=== PATIENT | female | born 1970 ===

== ENCOUNTER 2019-08-30 15:15 | Emergency (ER) | payer SELFPAY ==
[2019-08-30 15:28] VITALS: BP 102/42
--- NOTE | 2019-08-30 15:50 | UC ---
Laceration HPI - HPI Summary HPI Summary: 49-year old female presents for laceration to the tip of her right ring finger. States she was attempting to open a metal can and cut her finger on the edge of the can around 3:00 pm yesterday. States she cleaned and bandaged the wound. Continues to ooze blood. Tetanus status is unknown. Denies fever, chills, erythema, edema, or purulent discharge. - History Of Current Complaint Chief Complaint: UCLaceration Stated Complaint: FINGER LAC Time Seen by Provider: 08/30/19 15:33 Hx Obtained From: Patient Hx Last Menstrual Period: last month Pain Intensity: 1 - Allergies/Home Medications Allergies/Adverse Reactions: Allergies Allergy/AdvReac Type Severity Reaction Status Date / Time erythromycin base Allergy Rash Verified 08/30/19 15:28 Home Medications: Home Medications NK [No Home Medications Reported] 08/30/19 [History Confirmed 08/30/19] PMH/Surg Hx/FS Hx/Imm Hx Previously Healthy: Yes - Denies significant PMH - Surgical History Surgical History: Yes Surgery Procedure, Year, and Place: wisdom teeth. achilles rupture repair - Family History Known Family History: Positive: Non-Contributory - Social History Occupation: Employed Full-time Lives: With Family Alcohol Use: Occasionally Substance Use Type: None Smoking Status (MU): Never Smoked Tobacco - Immunization History Most Recent Influenza Vaccination: never Most Recent Tetanus Shot: UTD Review of Systems All Other Systems Reviewed And Are Negative: Yes Constitutional: Negative: Fever, Chills Skin: Positive: Other - See HPI Respiratory: Positive: Negative Cardiovascular: Positive: Negative Gastrointestinal: Positive: Negative Genitourinary: Positive: Negative Musculoskeletal: Positive: Negative Neurological: Positive: Negative Is Patient Immunocompromised?: No Physical Exam - Summary Physical Exam Summary: GENERAL APPEARANCE: Well developed, well nourished, alert and cooperative, and appears to be in no acute distress. CARDIAC: Normal S1 and S2. No S3, S4 or murmurs. Rhythm is regular. There is no peripheral edema, cyanosis or pallor. Extremities are warm and well perfused. Capillary refill is less than 2 seconds. Peripheral pulses intact. LUNGS: Clear to auscultation without rales, rhonchi, wheezing or diminished breath sounds. ABDOMEN: Positive bowel sounds. Soft, nondistended, nontender. No guarding or rebound. No masses or hepatosplenomegally. MUSKULOSKELETAL: ROM intact to all extremities. No joint erythema or tenderness. Normal muscular development. Normal gait. EXTREMITIES: Superficial C-shaped flap laceration to the tip of the right ring finger. The flap is pale and non-viable. No active bleeding. No erythema, edema , or drainage. SKIN: Skin normal color, texture and turgor. Triage Information Reviewed: Yes Vital Signs: Initial Vital Signs Temp 99.7 F 08/30/19 15:23 Pulse 72 08/30/19 15:23 Resp 18 08/30/19 15:23 BP 102/42 08/30/19 15:23 Pulse Ox 98 08/30/19 15:23 Vital Signs Reviewed: Yes Laceration Course/Dx - Course/Dx Course Of Treatment: 49-year old female presents for laceration to the tip of her right ring finger. States she was attempting to open a metal can and cut her finger on the edge of the can around 3:00 pm yesterday. States she cleaned and bandaged the wound. Continues to ooze blood. Tetanus status is unknown. Denies fever, chills, erythema, edema, or purulent discharge. Afebrile. Vital signs stable. Patient had a superficial C-shaped flap laceration to the tip of the right ring finger. The flap is pale and non-viable. No active bleeding. No erythema, edema, or drainage. Remainder of exam was unremarkable. I discussed with the patient that due to the length of time since the injury and that the avulsed skin was non- viable that the wound could not be repaired and would need to heal by secondary intention. Offered to excise the non-viable tissue however patient declined to have this procedure. Her tetanus was updated and a dressing was applied by the RN. She is to follow up with her primary care provider as needed. Anticipatory guidance and warning symptoms were reviewed with the patient. Verbalizes understanding and agrees with POC. - Differential Dx - Laceration/Wound Differental Diagnoses: Laceration, Tendon Laceration - Diagnosis Provider Diagnosis: Avulsion of skin of finger Discharge ED - Sign-Out/Discharge Documenting (check all that apply): Patient Departure All imaging exams completed and their final reports reviewed: No Studies - Discharge Plan Condition: Stable Disposition: HOME Patient Education Materials: Laceration Without Closure (ED) Referrals: Bala Sousa MD [Primary Care Provider] - If Needed Additional Instructions: You have a superficial laceration to the tip of your finger that cannot be repaired at this time. The skin flap will eventually and fall off and the wound will slowly heal from the inside out. Clean the wound with a mild soap and water at least once a day. Apply some antibiotic ointment and cover with a bandage. This should be changed at least once a day or any time the dressing becomes wet or soiled. Your tetanus (Tdap) was updated today. Be sure to notify your primary care provider so they can update their records. Use acetaminophen (Tylenol) or ibuprofen (Advil, Motrin) according to directions as needed for pain. Watch for signs of infection including fever greater than 100.5 F, severe pain not managed with pain medication, redness that spreads, swelling of the hand/ fingers, or pus draining from the wound. Seek immediate medical attention should any of these occur. - Billing Disposition and Condition Condition: STABLE Disposition: Home
[2019-08-30] MEDS ORDERED: Tetan/Diph/Pertus SYR(Tdap)* 0.5 ML SYR(BOOSTRIX) use SYR contains LATEX IM ONE (16:04)
== END 2019-08-30 16:17 | disposition home or self-care (01) ==
LOC: UCEAST 15:15
DX: S61.214A Laceration without foreign body of right ring finger without damage to nail, initial encounter (principal); Z88.1 Allergy status to other antibiotic agents; Z23 Encounter for immunization; W26.8XXA Contact with other sharp object(s), not elsewhere classified, initial encounter; Y92.9 Unspecified place or not applicable
CPT/HCPCS: 90471; 90715; 99202; G0463